=== PATIENT | male | born 1955 ===

== ENCOUNTER 2021-06-19 06:23 | Day surgery (SDC) | payer OTHER ==
[~2021-06-19 06:23] MED LIST: VALSARTAN160 MG
== END 2021-06-19 17:18 | disposition home or self-care (01) ==
LOC: CIR.AMB 06:23
PROVIDERS: ATTEND Otolaryngology Otology & Neurotology
DX: H71.01 Cholesteatoma of attic, right ear (principal); Z20.822 Contact with and (suspected) exposure to COVID-19